=== PATIENT | male | born 1950 | race Caucasian/White ===

== ENCOUNTER 2019-11-10 00:23 | Outpatient (CLI) | payer MEDICARE, SELFPAY ==
[2019-11-10 18:12] LABS: SARS-CoV-2 RNA PCR Negative
== END 2019-11-10 00:24 | disposition home or self-care (01) ==
LOC: ANHCOVIDDT 00:25
PROVIDERS: PCP Family Medicine; Visit Provider Internal Medicine Gastroenterology
DX: Z01.812 Encounter for preprocedural laboratory examination (principal); Z20.828 Contact with and (suspected) exposure to other viral communicable diseases
CPT/HCPCS: 87635; C9803; U0003

== ENCOUNTER 2019-11-12 02:42 | Day surgery (SDC) | payer MEDICARE, SELFPAY ==
[2019-11-07 09:44] VITALS: BMI 29.9
--- NOTE | 2019-11-12 07:19 | P.PNAN_ITS ---
Anes - Initial Pre Proc Eval Procedure: Operation Date: 11/12/19 08:30 Proposed Procedures p Screening Colonoscopy - Krishna Alberts MD Date/Time: 11/12/19 07:19 Surgeon: Krishna Alberts MD Pre Op Diagnosis: Neoplasm Screening Patient Data Age: 69 Gender: M Height: 1.83 m Weight: 100 kg Allergies Allergy/AdvReac Type Severity Reaction Status Date / Time No Known Allergies Allergy PER ADMIT Verified 11/12/19 07:38 ORDERS 03/25/03 (ON PROGRESS NOTE SHEET) Home Medications Medication Instructions Recorded Confirmed Type aspirin [Adult Low Dose Aspirin] 81 mg PO DAILY 11/07/19 11/07/19 History sertraline 100 mg PO DAILY 11/07/19 11/07/19 History diphenhydramine HCl [Sleep Aid 25 mg PO HS PRN 11/12/19 11/12/19 History (diphenhydramine)] phenylephrine HCl 10 mg PO Q4-6H PRN 11/12/19 11/12/19 History Patient hx anesthesia problems: none Family hx anesthesia problems: none PMFSH Past Medical History Medical History (Updated 11/12/19 @ 08:30 by Krishna Alberts MD) BPH (benign prostatic hyperplasia) Colon cancer screening Depression Fractured rib (~2017) Surgical History Surgical History (Updated 05/02/19 @ 09:04 by Belen Harris [facility]) H/O arthroscopy of right knee H/O arthroscopy of shoulder Family History Family History (Updated 06/06/17 @ 11:24 by DOCTOR UNKNOWN) Father Acute myocardial infarction Social History Social History Smoking status: Never smoker Alcohol intake: never Substance use: never Substance use type: does not use Living arrangements: alone Spiritual care concerns: No Anes - Eval Final PreProcedure Day of Procedure 11/12/19 07:19 Patient weight: overweight Heart: regular rate and rhythm Lungs: clear to auscultation and normal air movement Airway: Mallampati scale class II Neurological: alert and oriented Last oral intake: >/= 8 hours ASA classification: II Emergent: no Anesthetic plan: proceed Anesthesia type and monitoring: general GIVS and standard monitoring Informed Consent: The patient's anesthetic plan and its attendant risks and benefits were discussed with the patient/family/POA. Questions were solicited and answers provided to the satisfaction of the patient/family/POA.
[2019-11-12 07:49] VITALS: BP 157/93; PULSE 81; RESP 18; TEMP 36.7; O2SAT 94; BMI 27.7
[2019-11-12] MEDS: LACTATED RINGERS 1,000 ML 150 ML IV CONT (07:59)
--- NOTE | 2019-11-12 08:30 | PM.HPGS ---
History of Present Illness History of Present Illness Consent: Risks, benefits, and alternatives have been discussed and questions answered. Patient agrees to proceed with procedure. Chief complaint: Neoplasm Screening Narrative: Chiki Falk is a 69 year old male here for colonoscopy, last one 11 years ago. Review of Systems Constitutional: Constitutional: Denies headache(s) and Denies weakness Eyes: Eyes: Denies blurry vision ENT: Reports Normal hearing present, Denies headache(s) and Denies neck pain Cardiovascular: Cardiovascular: Denies chest pain and Denies dyspnea Respiratory: Respiratory: Denies dyspnea Gastrointestinal: Gastrointestinal: Reports no additional gastrointestinal complaints Genitourinary: Genitourinary: Denies dysuria Musculoskeletal: Musculoskeletal: Denies neck pain Integumentary/Breasts: Skin/Breast: Denies dry skin Neurologic: Reports Normal hearing present, Denies headache(s) and Denies weakness Psychiatric: Psychiatric: Denies anxiety Endocrine: Endocrine: Denies change in body appearance Hematologic/Lymphatic: Hematologic/Lymphatic: Denies easy bleeding Allergic/Immunologic: Allergic/Immunologic: Denies urticaria PMFSH Past Medical History Medical History (Updated 11/12/19 @ 08:30 by Krishna Alberts MD) BPH (benign prostatic hyperplasia) Colon cancer screening Depression Fractured rib (~2017) Surgical History Surgical History (Updated 05/02/19 @ 09:04 by Belen Harris CMA) H/O arthroscopy of right knee H/O arthroscopy of shoulder Family History Family History (Updated 06/06/17 @ 11:24 by DOCTOR UNKNOWN) Father Acute myocardial infarction Social History Social History Smoking status: Never smoker Alcohol intake: never Substance use: never Substance use type: does not use Living arrangements: alone Spiritual care concerns: No Meds Home Medications and Allergies Home Medications Medication Instructions Recorded Confirmed Type aspirin [Adult Low Dose Aspirin] 81 mg PO DAILY 11/07/19 11/07/19 History sertraline 100 mg PO DAILY 11/07/19 11/07/19 History diphenhydramine HCl [Sleep Aid 25 mg PO HS PRN 11/12/19 11/12/19 History (diphenhydramine)] phenylephrine HCl 10 mg PO Q4-6H PRN 11/12/19 11/12/19 History Allergies Allergy/AdvReac Type Severity Reaction Status Date / Time No Known Allergies Allergy PER ADMIT Verified 11/12/19 07:38 ORDERS 03/25/03 (ON PROGRESS NOTE SHEET) Vital Signs Vital Signs - 24 hr 11/12/19 07:49 Temperature 98.1 F Pulse Rate 81 Respiratory Rate 18 Blood Pressure 157/93 H Pulse Oximetry 94 Exam Const: General: comfortable and no acute distress HENMT: General nose exam: Normal nares present Eyes: General: appearance normal, both eyes and all related structures Neck: Neck: no JVD Resp: Auscultation: clear to auscultation bilaterally Cardio: Rate: regular rate Rhythm: regular rhythm GI: Inspection: non-distended GI Palp: Yes Soft to palpation Skin: General skin exam: normal color Neuro: General: gait normal Speech: normal speech Extrem: General: normal to inspection Psych: Mental Status: mental status grossly normal Assessment and Plan Assessment and plan (1) Colon cancer screening: Code(s): Z12.11 - Encounter for screening for malignant neoplasm of colon Status: Acute Assessment and Plan: will proceed with colonoscopy
[2019-11-12 08:56] VITALS: BP 109/73; PULSE 75; RESP 18; TEMP 36.7; O2SAT 94
[2019-11-12 09:06] VITALS: BP 111/74; PULSE 66; RESP 18; O2SAT 99
[2019-11-12 09:16] VITALS: BP 112/67; PULSE 68; RESP 20; O2SAT 99
== END 2019-11-12 09:25 | disposition home or self-care (01) ==
PROVIDERS: PCP Family Medicine; Visit Provider Internal Medicine Gastroenterology
PROC: 0DJD8ZZ Inspection of Lower Intestinal Tract, Via Natural or Artificial Opening Endoscopic (ICD-10-PCS; CPT 45378; principal; 2019-11-12 08:30)
DX: Z12.11 Encounter for screening for malignant neoplasm of colon (principal); D12.5 Benign neoplasm of sigmoid colon; K57.30 Diverticulosis of large intestine without perforation or abscess without bleeding; K64.8 Other hemorrhoids; N40.0 Benign prostatic hyperplasia without lower urinary tract symptoms; F32.9 Major depressive disorder, single episode, unspecified; Z79.82 Long term (current) use of aspirin
CPT/HCPCS: 45380; 88305; J2704; J7120

== ENCOUNTER → 2020-04-05 10:00 | Outpatient (CLI) | payer MEDICARE, SELFPAY ==
--- NOTE | ~2020-04-05 | US_ITS ---
EXAMINATION: US abdomen limited EXAM DATE: 04/05/2020 10:19 INDICATION: R10.9 - Unspecified abdominal pain TECHNIQUE: Multiple grayscale and Doppler images of the abdomen right upper quadrant were obtained (b y a technologist who performed the scan) and subsequently reviewed. There is no prior study for carri senior. FINDINGS: The pancreatic head and body are normal in appearance. The pancreatic tail is not visualized. There is echogenic liver parenchyma, hepatic steatosis. There are no focal liver lesions identified. Th ere is no evidence of intrahepatic biliary duct dilation. Portal venous flow was seen in the hepatop edal, normal direction and has normal Doppler waveform. No right-sided hydronephrosis. Common bile duct measures 3 mm, which is normal. The gallbladder wall is normal in thickness, with ex pected amount of distention. No sonographic evidence of pericholecystic fluid. There is no cholelit hiases. Technologist performing exam reports patient did not demonstrate sonographic Cardoza's sign. Please note that this sign is less reliable in patients who have received pain medication. IMPRESSION: 1. Hepatic steatosis. Reviewed, dictated and finalized at location A. ENTION SPECIALIST IMPRESSION: 1. Hepatic steatosis.
== END ==
PROVIDERS: PCP Family Medicine; Visit Provider Physician Assistant Medical
DX: E66.3 Overweight (principal); R10.9 Unspecified abdominal pain; K76.0 Fatty (change of) liver, not elsewhere classified
CPT/HCPCS: 76705

== ENCOUNTER → 2020-04-26 14:11 | Outpatient (CLI) | payer MEDICARE, SELFPAY ==
--- NOTE | ~2020-04-26 | CT_ITS ---
EXAMINATION: CT abdomen pelvis wo con EXAM DATE: 04/26/2020 14:32 INDICATION: Mid abdominal pain. TECHNIQUE: Spiral CT of the abdomen and pelvis was performed without contrast. Axial, coronal and s agittal images were reviewed. The dose-length product (DLP) for this examination was 952.38 mGy-cm. The exposure was tailored according to patient size (auto mA exposure control), and iterative recons truction (ASIR) was used as additional dose reduction technique. Comparison is made to prior examinat ion from 06/24/2014. FINDINGS: There is mild hepatic steatosis. The liver, spleen, adrenal glands and pancreas are unrema rkable. Gallbladder is unremarkable. No biliary obstruction. There is no nephrolithiasis or hydron ephrosis, previously seen 3 mm left calyceal stone is no longer identified. There is a moderate-sized right inguinal fat-containing hernia, has increased in size. The prostate is unremarkable. The anahi dder is unremarkable. There is no retroperitoneal or pelvic lymphadenopathy. There is mild scatter ed arteriosclerotic disease. The appendix is normal. There is moderate scattered colonic diverticulosis. There is no adjacent inf lammatory change to suggest diverticulitis. The stomach and small bowel are unremarkable. There is e xpected amount of colonic stool. No free intraperitoneal gas. The heart is normal in size. There are no pericardial or pleural effusions. There are bibasilar linear opacities, subsegmental atelect asis. There are no osteoblastic or osteolytic lesions identified. Chronic moderate to severe anterio r compression of L1. IMPRESSION: 1. No acute intra-abdominal findings. 2. Moderate scattered colonic diverticulosis. 3. Moderate right inguinal fat-containing hernia. Mild hepatic steatosis. Reviewed, dictated and finalized at location A.
== END ==
PROVIDERS: PCP Family Medicine; Visit Provider Family Medicine
DX: K57.30 Diverticulosis of large intestine without perforation or abscess without bleeding (principal); K40.90 Unilateral inguinal hernia, without obstruction or gangrene, not specified as recurrent; K76.0 Fatty (change of) liver, not elsewhere classified
CPT/HCPCS: 74176

== ENCOUNTER 2024-12-04 01:58 | Day surgery (SDC) | payer MEDICARE, SELFPAY ==
--- OUTSIDE RECORDS SUMMARY | 2007-12-26 03:15 | XMS_ITS | Continuity of Care Document ---
Author Organization [facility] Address [address] [place] [address] [address] [place] [address] Phone Care Team Providers Care Business Analyst Ecommerce Name Role Phone Gallo Cheatham MD Unavailable Unavailable Procedures Procedure Date Office Consultation Visual Field Examination(s) Office Consultation Advance Directives Directive Yes / No Effective Date File Name No Information Encounters Encounter Description Practice Location Reason(s) For Visit Diagnoses Date Provider Providers Copied on Encounter Office Consultation [facility], [address] [place] [address] [address], [place], [place], [id number], tel:[phone] [facility] No Information [address]. [address] [facility], [place], [place], [id number], [place]. tel:[phone] Referring Provider: Becki Vasquez, [address] [facility] [address], [place], [address]. tel:[phone] Office Consultation [facility], [address] [place] [address] [address], [place], [place], [id number], tel:[phone] [facility] No Information [address]. [facility] , [address], [place], [address], [place]. tel:[phone] Referring Provider: Mk Garrido MD, [address] [place] [address], [address]. tel:[phone] Family History Family Member Type Diagnosis Age At Onset No Information Payers Payer name Insurance type Covered green party ID Authoriza tion(s) No Information Social History Type Description Quantity Date Captured Comments Sex Male Smoking Status No Information Chief Complaint And Reason For Visit No Information Reason For Referral Reason For Referral No Information History Of Present Illness Encounter Date Complaint History Of Prese nt Illness No Information Functional Status Date Functional Assessmen t No Information Instructions Date Instruction Additional Infor mation No Information Assessments Type Assessment Date No Information Patient Care Teams Name Effective Dates (start - stop) Status Members No Information
[2024-11-24 14:35] VITALS: BMI 25.4
[2024-12-04 06:59] VITALS: BP 137/60; PULSE 75; RESP 19; TEMP 36.3; O2SAT 99
[2024-12-04] MEDS: LACTATED RINGERS 1,000 ML 150 ML IV CONT (07:09)
--- NOTE | 2024-12-04 07:19 | WPDANESEPPF ---
Anes - Initial Pre Proc Eval Procedure: Operation Date: 12/04/24 08:00 Proposed Procedures p Screening Colonoscopy - Krishna Alberts MD Date/Time: 12/04/24 07:19 Surgeon: Krishna Alberts MD Pre Op Diagnosis: Personal history of colon polyps, unspecified Patient Data Age: 74 Gender: M Height: 1.83 m Weight: 83.7 kg Last Vital Signs Temp 97.4 F L 12/04/24 06:59 Pulse 75 12/04/24 06:59 Resp 19 12/04/24 06:59 BP 137/60 12/04/24 06:59 Pulse Ox 99 12/04/24 06:59 O2 Del Method Room Air 12/04/24 06:59 Allergies Allergy/AdvReac Type Severity Reaction Status Date / Time No Known Allergies Allergy PER ADMIT Verified 12/04/24 06:58 ORDERS 03/25/03 (ON PROGRESS NOTE SHEET) Home Medications ?Medication ?Instructions ?Recorded ?Confirmed ?Type aspirin 81 mg tablet,delayed 81 mg PO DAILY 11/07/19 12/03/24 History release (Adult Low Dose Aspirin) sertraline 100 mg tablet 200 mg (2 x 100 mg) PO DAILY #180 04/13/22 12/04/24 Rx tabs atorvastatin 10 mg tablet See Rx Instructions .Route 06/23/24 12/04/24 Rx .COMPLEX #90 tabs tamsulosin 0.4 mg capsule (Flomax) 0.4 mg PO QHS #90 caps 08/15/24 12/04/24 Rx multivitamin 1 tablet PO DAILY 10/03/24 12/04/24 History Patient hx anesthesia problems: none Family hx anesthesia problems: none Results Review: All pre-operative results and documents have been reviewed as part of the pre-operative evaluation. [facility] Past Medical History Medical History Cataract surgery 2024 Fatty liver Overweight (BMI 25.0-29.9) Benign localized hyperplasia of prostate without urinary obstruction Major depressive disorder, single episode, unspecified Mixed hyperlipidemia Other continuous churn buttermaker (current) drug therapy Prediabetes Strain of lumbar region Colon cancer screening Depression BPH (benign prostatic hyperplasia) Fractured rib (~2016) Surgical History Surgical History H/O arthroscopy of shoulder H/O arthroscopy of right knee Family History Family History Father Acute myocardial infarction Social History Social History Smoking status: Never smoker Second hand tobacco smoke exposure: No Alcohol intake: never Substance use: never Substance use type: does not use Lack of Transportation: No Lack of Food: Never True Current Housing: I Have Housing Concerned About Future Housing: No Difficulty Paying Gas/Electric Bills: No Difficulty Paying for Meds: No Currently Unemployed: No Education: High School Diploma/GED Difficulty w/ Childcare or Family Care: No Living arrangements: with family Occupation/Education: retired Gender identity (if verbalized by the patient): Male Spiritual care concerns: No Agree to blood products: Yes Anes - Eval Final PreProcedure Day of Procedure 12/04/24 07:19 Patient weight: normal Lungs: normal air movement Airway: Mallampati scale class II Neurological: alert and oriented Last oral intake: >/= 8 hours ASA classification: II Emergent: no Anesthetic plan: proceed Anesthesia type and monitoring: general GIVS and standard monitoring Results Review: All pre-operative results and documents have been reviewed as part of the pre-operative evaluation. 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 Informed Consent: The patient's anesthetic plan and its attendant risks and benefits were discussed with the patient/family/POA. Questions were solicited and answers provided to the satisfaction of the patient/family/POA.
--- NOTE | 2024-12-04 07:45 | PM.HPGS ---
History of Present Illness History of Present Illness Consent: Risks, benefits, and alternatives have been discussed and questions answered. Patient agrees to proceed with procedure. Chief complaint: Personal history of colon polyps, unspecified Narrative: Chiki Falk is a 74 year old male with colon polyp in 2019 Review of Systems Review of Systems: All systems reviewed & are unremarkable except as noted in HPI and below PMFSH Past Medical History Medical History (Updated 12/04/24 @ 07:45 by Krishna Alberts MD) Adenomatous colon polyp Cataract surgery 2024 Fatty liver Overweight (BMI 25.0-29.9) Benign localized hyperplasia of prostate without urinary obstruction Major depressive disorder, single episode, unspecified Mixed hyperlipidemia Other equipment operator intermodal yard (current) drug therapy Prediabetes Strain of lumbar region Colon cancer screening Depression BPH (benign prostatic hyperplasia) Fractured rib (~2016) Surgical History Surgical History H/O arthroscopy of shoulder H/O arthroscopy of right knee Family History Family History Father Acute myocardial infarction Social History Social History Smoking status: Never smoker Second hand tobacco smoke exposure: No Alcohol intake: never Substance use: never Substance use type: does not use Lack of Transportation: No Lack of Food: Never True Current Housing: I Have Housing Concerned About Future Housing: No Difficulty Paying Gas/Electric Bills: No Difficulty Paying for Meds: No Currently Unemployed: No Education: High School Diploma/GED Difficulty w/ Childcare or Family Care: No Living arrangements: with family Occupation/Education: retired Gender identity (if verbalized by the patient): Male Spiritual care concerns: No Agree to blood products: Yes Meds Home Medications and Allergies Home Medications ?Medication ?Instructions ?Recorded ?Confirmed ?Type aspirin 81 mg tablet,delayed 81 mg PO DAILY 11/07/19 12/03/24 History release (Adult Low Dose Aspirin) sertraline 100 mg tablet 200 mg (2 x 100 mg) PO DAILY #180 04/13/22 12/04/24 Rx tabs atorvastatin 10 mg tablet See Rx Instructions .Route 06/23/24 12/04/24 Rx .COMPLEX #90 tabs tamsulosin 0.4 mg capsule (Flomax) 0.4 mg PO QHS #90 caps 08/15/24 12/04/24 Rx multivitamin 1 tablet PO DAILY 10/03/24 12/04/24 History Allergies Allergy/AdvReac Type Severity Reaction Status Date / Time No Known Allergies Allergy PER ADMIT Verified 12/04/24 06:58 ORDERS 03/25/03 (ON PROGRESS NOTE SHEET) Vital Signs Vital Signs - 24 hr 12/04/24 06:59 Temperature 97.4 F L Pulse Rate 75 Respiratory Rate 19 Blood Pressure 137/60 Pulse Oximetry 99 Oxygen Delivery Room Air Exam Const: General: comfortable and no acute distress HENMT: Face/Nose/Sinus: Normal nares present Eyes: General: appearance normal, both eyes and all related structures Resp: Auscultation: clear to auscultation bilaterally Cardio: Rate: regular rate Rhythm: regular rhythm GI: Inspection: non-distended GI Palp: Yes Soft to palpation Skin: General skin exam: normal color Extrem: General: normal to inspection Psych: Mental Status: mental status grossly normal Assessment and Plan Assessment and plan (1) Adenomatous colon polyp: Code(s): D12.6 - Benign neoplasm of colon, unspecified Status: Acute Assessment and Plan: colonoscopy
[2024-12-04 07:59] VITALS: BP 87/53; PULSE 73; RESP 17; O2SAT 97
[2024-12-04 08:09] VITALS: BP 94/61; PULSE 73; RESP 21; O2SAT 97
[2024-12-04 08:19] VITALS: BP 106/61; PULSE 71; RESP 20; O2SAT 99
== END 2024-12-04 08:26 | disposition home or self-care (01) ==
PROVIDERS: PCP Family Medicine; Referring Provider Family Medicine; Visit Provider Internal Medicine Gastroenterology
PROC: 0DJD8ZZ Inspection of Lower Intestinal Tract, Via Natural or Artificial Opening Endoscopic (ICD-10-PCS; CPT 45378; principal; 2024-12-04 08:00)
DX: Z12.11 Encounter for screening for malignant neoplasm of colon (principal); K57.30 Diverticulosis of large intestine without perforation or abscess without bleeding; K64.8 Other hemorrhoids; Z86.0100 Personal history of colon polyps, unspecified
CPT/HCPCS: G0105; J2704; J7120

== ENCOUNTER 2024-12-23 10:17 | Outpatient (CLI) | payer MEDICARE, SELFPAY ==
--- NOTE | 2024-12-23 10:30 | ECG_ITS ---
Test Date: 2024-12-23 10:48:18 Measurements Intervals [place] Rate: 68 P: 60 MA: 173 QRS: -20 QRSD: 141 T: 7 QT: 423 QTc: 453 Interpretive Statements SINUS RHYTHM WITH OCCASIONAL VENTRICULAR PREMATURE COMPLEXES RIGHT BUNDLE BRANCH BLOCK [120+ ms QRS DURATION, UPRIGHT V1, 40+ ms S IN I/aVL/V4/V5/V6] ABNORMAL ECG No previous ECG available for comparison Electronically Signed On 12-23-2024 15:53:[address] [employer] by Colby Velazco M.D.
== END 2024-12-23 10:18 | disposition home or self-care (01) ==
LOC: ANHSURGERY 10:21
PROVIDERS: PCP Family Medicine; Visit Provider Surgery
DX: Z01.818 Encounter for other preprocedural examination (principal); K40.30 Unilateral inguinal hernia, with obstruction, without gangrene, not specified as recurrent; E78.2 Mixed hyperlipidemia; R94.31 Abnormal electrocardiogram [ECG] [EKG]
CPT/HCPCS: 36415; 86850; 86900; 86901; 93005

== ENCOUNTER 2024-12-30 00:39 | Day surgery (SDC) | payer MEDICARE, SELFPAY ==
[2024-12-18 14:01] VITALS: BMI 27.8
--- NOTE | 2024-12-18 14:15 | PC.NURSE ---
[facility] has started construction of its new state of the art ER which will open Spring 2026. With this, we anticipate parking may be a challenge for some our surgical patients and families. Parking spaces are limited but are available for all Surgical, obstetrics, and ER patients sharing this lot. If you arrive and find you are having a hard time finding a parking space, please note that we understand the challenges, please drive around the hospital and park near Hospital Entrance 1. When you enter this entrance, you can ask a volunteer to direct or take you back to the surgical waiting area to check in. We appreciate everyone?s understanding of these expected challenges while we build for your future. Report to the Outpatient Waiting Room, entrance under the green pavilion located off [address], at time ____10:00am___ on date __12/30/24 . Planned Procedure Time: __12:00pm .? Time changes happen often and if your time is changed the preop area will call you the afternoon before. - You and your visitor will be asked to self-screen and do not enter if you have any COVID symptoms. Please call surgeon if you need to reschedule. - A mask is optional within the hospital at this time. Patients may have clear liquids (water, carbonated beverages, clear teas, apple juice) until 3 hours prior to surgery with a maximum of 20 ounces. - No food from midnight until time of surgery and no smoking, or chewing tobacco (or any form of nicotine). No chewing gum, candy or mints.(0900am) . Take only the following medications with a SIP of water on the morning of surgery: ___Sertraline DO NOT STOP ANY OF YOUR OTHER PRESCRIPTION MEDICATIONS PRIOR TO SURGERY EXCEPT THE FOLLOWING Hold all vitamins and supplements for 3 days per anesthesiologist. Date of last dose is 12/26/24 Medications to discontinue per physician ____NONE Date to take last dose NONE Please no make-up, nail kyrgyz, hairspray, perfume, deodorant, or body powder the day of surgery.? No jewelry (including any body piercings) or valuables the day of surgery, leave them at home.? Please take a shower or bath the night before, or the morning of, surgery with an antibacterial soap DIAL SOAP. Wear comfortable, loose fitting clothing.? - Jewelry must be removed prior to entering the operating room.? Rings and piercings that are not removed may be cut off. - The hospital will not accept responsibility for valuables.? - Please leave all valuables, including medications, at home the day of surgery. If you are going home after surgery, a licensed driver guide must drive you home.? - NO public transportation without another adult if you receive anesthesia. - We recommend that an adult stay with you for 24 hours following discharge. - We also recommend that you do not drive, make important decision, drink alcoholic beverages, or take any drugs that were not prescribed by your health care provider for at least 24 hours after your discharge time. Follow any additional instructions given to you from your surgeon. Telephone instructions given to ___Patient and asked if any additional questions and then verbalized understanding. Patient advised to call surgeon office or pre surgery nurse liaison [phone] if any additional questions.
[2024-12-30] VITALS (10 sets, daily range): BP systolic 105–144; BP diastolic 56–95; PULSE 64–102; RESP 13–16; TEMP 36.4–36.5; O2SAT 96–100
[2024-12-30] MEDS: KETOROLAC 15 MG/ML VIAL (*BKC) IV PUSH (10:50)
[2024-12-30] MEDS: ACETAMINOPHEN 500 MG TABLET 1000 MG PO (10:50)
[2024-12-30] MEDS: LACTATED RINGERS 1,000 ML 30 ML IV CONT ×2 (10:50→14:05)
--- NOTE | 2024-12-30 11:15 | WPDHPUPDATE1 ---
History and Physical Update Update Date/Time: 12/30/24 11:15 History and Physical has been reviewed, including an updated exam of the patient. There are NO changes in the patient's condition. Risks, benefits, and alternatives have been discussed and questions answered. Patient agrees to proceed with procedure.
--- NOTE | 2024-12-30 11:42 | P.PNAN_ITS ---
Anes - Initial Pre Proc Eval Procedure: Operation Date: 12/30/24 12:00 Proposed Procedures p Robotic Assisted Laparoscopic Right Inguinal Hernia Repair with Mesh, Possible Left Inguinal Hernia Repair, Possible Open - Sachin Dunlap MD Date/Time: 12/30/24 11:42 Surgeon: Sachin Dunlap MD Pre Op Diagnosis: reduceable right inguinal hernia Patient Data Age: 74 Gender: M Height: 1.78 m Weight: 88.3 kg Last Vital Signs Temp 36.5 C 12/30/24 10:50 Pulse 64 12/30/24 10:50 Resp 16 12/30/24 10:50 BP 143/83 H 12/30/24 10:50 Pulse Ox 98 12/30/24 10:50 O2 Del Method Room Air 12/30/24 10:50 Allergies Allergy/AdvReac Type Severity Reaction Status Date / Time No Known Allergies Allergy PER ADMIT Verified 12/30/24 11:04 ORDERS 03/25/03 (ON PROGRESS NOTE SHEET) Home Medications ?Medication ?Instructions ?Recorded ?Confirmed ?Type aspirin 81 mg tablet,delayed 81 mg PO DAILY 11/07/19 1 02/18/24 History release (Adult Low Dose Aspirin) sertraline 100 mg tablet 200 mg (2 x 100 mg) PO DAILY #180 04/13/22 12/30/24 Rx tabs tamsulosin 0.4 mg capsule (Flomax) 0.4 mg PO QHS #90 c aps 08/15/24 12/30/24 Rx multivitamin 1 tablet PO DAILY 10/03/24 1 03/01/24 History atorvastatin 10 mg tablet See Rx Instructions .Route 1 02/11/24 12/30/24 Rx .COMPLEX #90 tabs Patient hx anesthesia problems: none Family hx anesthesia problems: none Results Review: All pre-operative results and documents have been reviewed as part of the pre- operative evaluation. PENDING SALE TO [facility] Past Medical History Medical History Adenomatous colon polyp Cataract surgery 2024 Fatty liver Overweight (BMI 25.0-29.9) Benign localized hyperplasia of prostate without urinary obstruction Major depressive disorder, single episode, unspecified Mixed hyperlipidemia Other roasterman (current) drug therapy Prediabetes Strain of lumbar region Colon cancer screening Depression BPH (benign prostatic hyperplasia) Fractured rib (~2016) Surgical History Surgical History H/O arthroscopy of shoulder H/O arthroscopy of right knee Family History Family History Father Acute myocardial infarction Social History Social History Smoking status: Never smoker Second hand tobacco smoke exposure: No Alcohol intake: never Substance use: never Substance use type: does not use Lack of Transportation: No Lack of Food: Never True Current Housing: I Have Housing Concerned About Future Housing: No Difficulty Paying Gas/Electric Bills: No Difficulty Paying for Meds: No Currently Unemployed: No Education: High School Diploma/GED Difficulty w/ Childcare or Family Care: No Living arrangements: with family Occupation/Education: retired Gender identity (if verbalized by the patient): Male Spiritual care concerns: No Agree to blood products: Yes Anes - Eval Final PreProcedure Day of Procedure 12/30/24 11:42 Patient weight: overweight Heart: regular rate and rhythm Lungs: clear to auscultation Airway: Mallampati scale class II Neurological: alert and oriented Last oral intake: >/= 8 hours ASA classification: III Emergent: no Anesthetic plan: proceed Anesthesia type and monitoring: general ETT and standard monitoring Results Review: All pre-operative results and documents have been reviewed as part of the pre- operative evaluation. Informed Consent: The patient's anesthetic plan and its attendant risks and benefits were discussed with the patient/family/POA. Questions were solicited and answers provided to the satisfaction of the patient/family/POA.
[2024-12-30] MEDS: ceFAZolin 2 GM in SODIUM CHLORIDE 0.9% IV 50 ML 100 ML IVPB (11:46)
[2024-12-30] MEDS: LIDO 1%/EPINEPHRINE 1:100,000 50 ML VIAL (12:08)
[2024-12-30] MEDS: BUPivacaine HCL 0.5% 10 ML AMP 30 ML INFILTRATE (12:08)
--- NOTE | 2024-12-30 12:58 | S_PTH ---
PATIENT: Chiki Falk LOC: [facility] U#:[id number] AGE/SX: 74/M ROOM: RE12/30/[address]: Sachin Dunlap MD : 1950 BED: DIS: 12/30/2024 SPEC #: [id number] RECD: 12/31/24 07:48 STATUS: LIVIER REQ #: [id number] REGAN: 12/30/24 12:[address]: Sachin Dunlap DEPT: [facility] Surgical RECD BY: Geneva Vee ENTERED: 12/31/24 07:49 SP TYPE: Surgical OTHR DR: Mk Garrido MD Tissues: A - Lymph Node Procedures: Hematoxylin and Eosin Stain Gross and Microscopic Level 4
--- NOTE | 2024-12-30 14:00 | P.OP_ITS ---
Procedure Note - Detailed Date of Procedure 12/30/24 Pre-op Diagnosis Reduceable right inguinal hernia Post-op Diagnosis Same Procedure Performed Robotic assisted laparoscopic right inguinal hernia repair the Bard 3D mid weight mesh Surgeon Sachin Dunlap MD Outsole Handler Tyrese Mcneal, JANIA Anesthesia General Indications Patient is a 74-year-old white male presented with complaints of having pain in his right groin and a bulge. Examination revealed a have a moderate reducible right inguinal hernia. He presents now for elective inguinal hernia repair on the right side with mesh reinforcement by robotic assisted laparoscopic approach. Findings Patient had a large direct inguinal defect containing fatty tissue and no bowel. Bladder was not in the hernia either. He did have single enlarged right iliac node which was dissected out with a cord lipoma. The lymph node measured approximately 1.5 cm in diameter. It was sent to pathology for examination due to its enlarged size but it did appear to be pretty benign. Description of Procedure After informed consent was obtained patient brought to the operating room was placed supine position and general endotracheal anesthesia was administered. The abdomen bilateral groin regions were then prepped and draped usual sterile fashion. Time-out was then performed correctly identifying the patient as well as procedure to be performed. He was given perioperative IV antibiotics. I then entered the abdomen left upper quadrant utilizing a 5mm Optiview port. Once inside the abdomen insufflated to adequate pneumoperitoneum of 15mmHg of CO2. The patient was then placed in the head-down Trendelenburg position 15? and I was then able to be view both groin regions. The patient had a moderately large direct right inguinal hernia defect. There was no bowel in the hernia defect. The patient had no evidence of a left inguinal hernia. I then placed additional 8mm robotic trocars across the mid abdomen. I then had the Kareem robot brought to the patient's bedside and docked and then the robotic arms were attached robotic ports. Robotic instruments were then advanced into the abdomen under direct visualization. I then scrubbed out the procedure sent down at the console to perform the dissection. Utilizing robotic instruments I created a preperitoneal flap in the room right lower abdominal wall extended this distally to the internal ring and then medially to the pubic tubercle. I then dissected down into the space of Retzius for couple cm and then came back and then dissected the fatty contents out of the direct defect. No evidence of bladder distention into the direct defect. I then proceeded to dissect the peritoneum proximally onto the psoas muscle. I find the vas deferens and testicular vessels and preserve these without injury. I dissected proximally until the peritoneal flap was proximal to the separation of the vas deferens and testicular vessels. I then reduced a cord lipoma of the direct defect. This is dissected free and removed from the abdomen. Along with the cord lipoma was and a enlarged lymph node measuring about 1.5cm in diameter which was dissected free which was along the iliac inguinal lymph node chain. Once this was dissected free it was then brought out through the left upper quadrant trocar port and sent to pathology for examination. Once I felt I had the peritoneum dissected free proximally enough that the proximal edge of the mesh would not roll up with closure of the peritoneum I then proceeded to measure the space for my mesh. I felt that a piece of Bard 3D mid weight mesh ordered for the right side measuring [id number] would be appropriate. I then imbricated the attenuated transversalis fascia and the direct defect and pseudo hernia sac utilizing a running 2-0 absorbable V lock suture. I then placed the mesh into the dissected space and then secured the mesh medially to the tissues around the pubic tubercle with a 2-0 Vicryl suture. Laterally the mesh was secured to the muscle anterior medial to the left anterior superior iliac spine. Lastly a a suture was placed to approximate the mesh to the edge of the direct defect. I then proceeded to close the peritoneal flap. This is done with a running 2-0 absorbable V lock suture. Once this was done the proximal edge of the mesh did not roll up with the peritoneum and stayed flat. A small hole in the peritoneal flap was then closed utilizing 2-0 Vicryl suture placed in a figure-eight fashion. I then removed had the robotic instruments removed from the abdomen and then the robot was then docked from the patient's bedside. I then scrubbed back into the procedure and proceeded to close the 8mm periumbilical trocar port fascial defect as well as the 10mm left upper quadrant trocar port fascial defect utilizing a 0 Vicryl suture the fascial level. The incisions were then irrigated sterile saline solution hemostasis was good. All the incisions were then closed utilizing a running subcuticular 4-0 Monocryl suture. The incisions were then cleaned the skin glue was applied. The patient tolerated the procedure well no complications. All sponges, needles, and instrument counts were correct at the end procedure. EBL was _20__cc. The patient was awakened and taken to recovery in stable and satisfactory condition. Implants Bard 3D mid weight mesh oriented for right side [id number] Estimated Blood Loss 20 Drains No Packing No Pathology Yes (Single enlarged fleshy lymph node from right iliac chain sent to pathology for examination) Complications No immediate complications Condition Stable Disposition PACU [facility] Billing Surgery - Charge Forward: Surgery Billing
== END 2024-12-30 16:35 | disposition home or self-care (01) ==
PROVIDERS: PCP Family Medicine; Visit Provider Surgery
PROC: 8E0Y4CZ Robotic Assisted Procedure of Lower Extremity, Percutaneous Endoscopic Approach (ICD-10-PCS; CPT 49650; principal; 2024-12-30 12:00)
DX: K40.90 Unilateral inguinal hernia, without obstruction or gangrene, not specified as recurrent (principal); D17.6 Benign lipomatous neoplasm of spermatic cord; R59.0 Localized enlarged lymph nodes
CPT/HCPCS: 49650; S2900; 88305; J0690; A9270; C1781; J1100; J1885; J2004; J2250; J2270; J2704; J7030; J7120